=== PATIENT | female | born 1970 | race Caucasian/White ===

== ENCOUNTER 2018-02-21 08:28 | Day surgery (SDC) | payer BC ==
[2018-02-21] MEDS ORDERED: PROPOFOL 20 ML ×2 (10:00→10:50)
[2018-02-21] MEDS ORDERED: LIDOCAINE 2% (SDV) 5 ML INJ (10:00)
[2018-02-21] MEDS ORDERED: FENTAnyl 50 MCG/ML VIAL (10:01)
[2018-02-21] MEDS ORDERED: MIDAZOLAM 1 MG/ML 2 ML INJ (10:51)
== END 2018-02-21 12:56 | disposition home or self-care (01) ==
LOC: GIL 08:28
DX: Z12.11 Encounter for screening for malignant neoplasm of colon (principal); K21.9 Gastro-esophageal reflux disease without esophagitis; K29.70 Gastritis, unspecified, without bleeding; K64.8 Other hemorrhoids; D12.6 Benign neoplasm of colon, unspecified; E11.9 Type 2 diabetes mellitus without complications; I10 Essential (primary) hypertension
CPT/HCPCS: 43239; 82962; 88305; 88312